=== PATIENT | female | born 1995 | race Caucasian/White ===

== ENCOUNTER 2019-03-25 12:38 | Outpatient (RCR) | payer OTHER, SELFPAY ==
[2019-03-25 14:11] LABS: Hematocrit 32.4 % (37.0-47.0); Hemoglobin 11.2 g/dL (12.0-15.0)
[2019-03-25 14:22] LABS: Glucose 1 Hour PP 50gm Dose 115 mg/dL
[2019-03-25 15:03] LABS: HIV 1/2 Ab P24 Ag Result Negative (Negative)
[2019-03-25] MEDS: RHO(D) IMMUNE GLOBULIN 300 MCG SYRINGE IM (19:51)
== END 2019-06-23 23:59 | disposition home or self-care (01) ==
LOC: ANHLAB 12:38
PROVIDERS: Visit Provider Obstetrics & Gynecology
DX: Z29.13 Encounter for prophylactic Rho(D) immune globulin (principal); O36.0920 Maternal care for other rhesus isoimmunization, second trimester, not applicable or unspecified; Z36.89 Encounter for other specified antenatal screening; Z3A.00 Weeks of gestation of pregnancy not specified
CPT/HCPCS: 36415; 82947; 85014; 85018; 86703; 90384; 96372; G0432; J2790

== ENCOUNTER 2019-04-15 09:55 | Outpatient (RCR) | payer OTHER, SELFPAY ==
[2019-04-15 11:21] VITALS: BP 117/71; PULSE 74
== END 2019-06-06 09:03 | disposition home or self-care (01) ==
LOC: ANHOBOP 09:55
PROVIDERS: Visit Provider Obstetrics & Gynecology
DX: O99.89 Other specified diseases and conditions complicating pregnancy, childbirth and the puerperium (principal); Z3A.32 32 weeks gestation of pregnancy; R51 Headache; M79.89 Other specified soft tissue disorders
CPT/HCPCS: 59025

== ENCOUNTER 2019-06-05 19:00 | Inpatient (IN) | payer OTHER, SELFPAY ==
[2019-06-05 19:00] VITALS: BMI 41.1
[2019-06-05 19:43] VITALS: TEMP 37.1
[2019-06-05 19:44] LABS: Basophils Percent Auto 0.3 % (0.2-1.2); Eosinophils Absolute Auto 0.1 K/mm3 (0-0.3); Eosinophils Percent Auto 0.7 % (0-4.4); Hematocrit 35.5 % (37.0-47.0); Immature Granulocyte Absolute 0.13 K/mm3 (0.00-0.031); Immature Granulocyte Percent A 1.1 % (0-0.5); Lymphocytes Absolute Auto 1.83 K/mm3 (0.9-3.2); Mean Corpuscular HGB Conc 33.8 g/dl (32-36); Mean Corpuscular Hemoglobin 28.8 pg (26-34); Mean Corpuscular Volume 85.1 fl (80-100); Mean Platelet Volume 10.5 fl (7.4-10.4); Monocytes Absolute Auto 0.9 K/mm3 (0.1-0.6); Monocytes Percent Auto 7.2 % (2.6-8.5); Neutrophils Absolute Auto 9.3 K/mm3 (1.3-6.7); Neutrophils Percent Auto 75.7 % (45.5-73.1); Platelet Count Result 265 k/mm3 (150-375); Red Blood Count 4.17 M/mm3 (4.2-5.4); Red Cell Distribution Width 12.4 % (11.5-14.5); White Blood Count 12.2 K/mm3 (4.5-10.0)
[2019-06-05] MEDS: DINOPROSTONE 10 MG VAG INSERT VAGINAL (19:55)
--- NOTE | 2019-06-05 20:24 | LDADM ---
This patient, Luz Marina Nicholas, was admitted to Labor/Delivery/Recovery 104 on 06/05/19 at 19:00. Plans for labor, pain management and were discussed with patient. Patient/family oriented to hospital policies and general routines including ID bracelet, bed and alarms, visiting hours, pain management, procedures, bathroom and other care routines, personal items, smoking policy, room service/diet and guest tray routines, security routines, and visiting hours. Patient/Family are encouraged to report perceived risks to care and to ask questions if they do not understand what they are told or what they should do. See OBIX for further documentation.
[2019-06-05 20:31] VITALS: BP 129/90; PULSE 79
[2019-06-05 21:01] VITALS: BP 134/84; PULSE 81
[2019-06-05 21:31] VITALS: BP 132/85; PULSE 81
[2019-06-05 22:01] VITALS: BP 104/75; PULSE 77
[2019-06-05] MEDS: LACTATED RINGERS 1,000 ML 125 ML IV CONT (23:45)
[2019-06-06] VITALS (135 sets, daily range): BP systolic 62–132; BP diastolic 31–99; PULSE 78–134; RESP 16–22; TEMP 36.7–38.1; O2SAT 96–100
--- NOTE | 2019-06-06 01:29 | WPDANESEPPF ---
Anes - Initial Pre Proc Eval Date/Time: 06/06/19 01:29 Surgeon: Ralf Pinedo MD Pre Op Diagnosis: Induction of labor Patient Data Age: 23 Gender: F Height: 5 ft 5 in Weight: 112 kg Last Vital Signs Temp 37.1 C 06/05/19 19:43 Pulse 90 06/06/19 01:28 BP 97/49 L 06/06/19 01:28 Pulse Ox 99 06/06/19 01:28 Allergies Allergy/AdvReac Type Severity Reaction Status Date / Time sulfamethoxazole Allergy Unknown Anaphylaxis Unverified 06/05/19 21:11 sumatriptan Allergy Unknown Chest Pain Unverified 06/05/19 21:11 trimethoprim Allergy Unknown Anaphylaxis Unverified 06/05/19 21:11 Home Medications Medication Instructions Recorded Confirmed Type PNV cmb#95-ferrous fumarate-FA 1 tablet PO DAILY 05/20/19 05/20/19 History [] Laboratory Tests 06/05/19 06/05/19 06/05/19 19:30 19:30 19:30 WBC 12.2 K/mm3 H K/mm3 (4.5-10.0) RBC 4.17 M/mm3 L M/mm3 (4.2-5.4) Hgb 12.0 g/dL g/dL (12.0-15.0) Hct 35.5 % L % (37.0-47.0) MCV 85.1 fl fl (80-100) MCH 28.8 pg pg (26-34) MCHC 33.8 g/dl g/dl (32-36) RDW 12.4 % % (11.5-14.5) Plt Count 265 k/mm3 k/mm3 (150-375) MPV 10.5 fl H fl (7.4-10.4) Immature Gran % (Auto) 1.1 % H % (0-0.5) Neut % (Auto) 75.7 % H % (45.5-73.1) Lymph % (Auto) 15.0 % L % (18.3-44.2) [place] % (Auto) 7.2 % % (2.6-8.5) Eos % (Auto) 0.7 % % (0-4.4) Baso % (Auto) 0.3 % % (0.2-1.2) Lymph # (Auto) 1.83 K/mm3 K/mm3 (0.9-3.2) [place] # (Auto) 0.9 K/mm3 H K/mm3 (0.1-0.6) Eos # (Auto) 0.1 K/mm3 K/mm3 (0-0.3) Baso # (Auto) 0.0 K/mm3 K/mm3 (0.0-0.1) Abs Immat Gran (auto) 0.13 K/mm3 H K/mm3 (0.00-0.031) Absolute Neuts (auto) 9.3 K/mm3 H K/mm3 (1.3-6.7) Absolute Nucleated RBC 0.0 K/mm3 K/mm3 (0.0-0.012) Nucleated RBC % 0.0 % % (0.0-0.2) RPR Pending Blood Type AB Negative Antibody Screen Positive Antibody Identification Inconclusive Antigen Identification Cancelled SHREYA, IgG Interpret Not Performed SHREYA, Poly Interpret Negative SHREYA, Complement Interp Not Performed Patient hx anesthesia problems: none Family hx anesthesia problems: none [facility] Family History Family History Mother Diabetes mellitus Hypertension Social History Social History Smoking status: Never smoker Substance use: never Gender identity (if verbalized by the patient): Female Spiritual care concerns: No Anes - Eval Final PreProcedure Day of Procedure 06/06/19 01:29 Patient weight: morbidly obese Neurological: alert and oriented ASA classification: III Emergent: no Anesthetic plan: proceed Anesthesia type and monitoring: regional epidural and standard monitoring Informed Consent: The patient's anesthetic plan and its attendant risks and benefits were discussed with the patient/family/POA. Questions were solicited and answers provided to the satisfaction of the patient/family/POA.
[2019-06-06] MEDS: TERBUTALINE SULFATE 1 MG/ML VIAL 0.25 MG SUB-Q ×2 (02:14→03:42)
[2019-06-06] MEDS: AMPICILLIN 2 GM/NS 100 ML 2 GM/100 ML BAG IVPB (02:20)
[2019-06-06] MEDS: PHENYLEPHRINE 1,000 MCG/10 ML SYRINGE 100 MCG IV PUSH (02:38)
[2019-06-06] MEDS: ePHEDrine sulfate INJ 50 MG/ML AMPUL IV PUSH ×2 (02:49→02:54)
--- NOTE | 2019-06-06 04:18 | PM.IMHP ---
H&P: HPI History of Present Illness Chief complaint: Induction of labor Narrative: Luz Marina Nicholas is a 23 year old female at 39weeks and 5days initially presented for elective induction of labor. Cervidil was placed on admission and she started to contract and made cervical change. Epidural was administered, initial hypotension was noted followed by a prolonged deceleration. Terbutaline was administered. SROM clear fluid. Noted to have fever. Presumptive chorioamnionitis, antibiotics started. Recurrent variable decels noted. IUPC placed and amnioinfusion started. However, recurrent variable decels persisted. Review of Systems Constitutional: Constitutional: Reports no additional constitutional complaints, Denies chills, Denies fatigue and Denies weakness Cardiovascular: Cardiovascular: Reports no additional cardiovascular complaints, Denies chest pain, Denies lightheadedness and Denies palpitations Respiratory: Respiratory: Reports no additional respiratory complaints and Denies dyspnea Gastrointestinal: Gastrointestinal: Reports no additional gastrointestinal complaints and Denies abdominal pain Musculoskeletal: Musculoskeletal: Reports no additional musculoskeletal complaints Psychiatric: Psychiatric: Reports no additional psychiatric complaints [facility] Family History Family History Mother Diabetes mellitus Hypertension Social History Social History Smoking status: Never smoker Substance use: never Gender identity (if verbalized by the patient): Female Spiritual care concerns: No Meds Home Medications and Allergies Home Medications Medication Instructions Recorded Confirmed Type PNV cmb#95-ferrous fumarate-FA 1 tablet PO DAILY 05/20/19 05/20/19 History [] Allergies Allergy/AdvReac Type Severity Reaction Status Date / Time sulfamethoxazole Allergy Unknown Anaphylaxis Unverified 06/05/19 21:11 sumatriptan Allergy Unknown Chest Pain Unverified 06/05/19 21:11 trimethoprim Allergy Unknown Anaphylaxis Unverified 06/05/19 21:11 Vital Signs Vital Signs - 24 hr 06/05/19 19:43 06/05/19 20:31 06/05/19 21:01 Temperature 37.1 C Pulse Rate 79 81 Blood Pressure 129/90 134/84 Pulse Oximetry 06/05/19 21:31 06/05/19 22:01 06/06/19 01:12 Temperature 37.8 C H Pulse Rate 81 77 Blood Pressure 132/85 104/75 Pulse Oximetry 06/06/19 01:13 06/06/19 01:15 06/06/19 01:18 Temperature Pulse Rate 102 H Blood Pressure 123/80 Pulse Oximetry 100 100 06/06/19 01:19 06/06/19 01:23 06/06/19 01:27 Temperature Pulse Rate 101 H 95 Blood Pressure 120/78 95/42 L Pulse Oximetry 99 06/06/19 01:28 06/06/19 01:31 06/06/19 01:33 Temperature Pulse Rate 90 95 93 Blood Pressure 97/49 L 97/53 L 87/52 L Pulse Oximetry 99 100 06/06/19 01:35 06/06/19 01:36 06/06/19 01:38 Temperature 38.1 C H Pulse Rate 93 91 Blood Pressure 95/49 L 99/48 L Pulse Oximetry 100 06/06/19 01:41 06/06/19 01:43 06/06/19 01:46 Temperature Pulse Rate 96 88 83 Blood Pressure 97/50 L 100/46 L 106/46 L Pulse Oximetry 100 06/06/19 01:48 06/06/19 01:51 06/06/19 01:53 Temperature Pulse Rate 89 91 91 Blood Pressure 114/61 105/52 L 99/43 L Pulse Oximetry 100 100 06/06/19 01:56 06/06/19 01:58 06/06/19 01:59 Temperature Pulse Rate 89 96 96 Blood Pressure 62/40 L 102/52 L 110/70 Pulse Oximetry 99 06/06/19 02:01 06/06/19 02:03 06/06/19 02:06 Temperature Pulse Rate 90 88 96 Blood Pressure 118/63 119/65 113/55 L Pulse Oximetry 100 06/06/19 02:08 06/06/19 02:09 06/06/19 02:12 Temperature 38.1 C H Pulse Rate 89 Blood Pressure 121/67 Pulse Oximetry 100 06/06/19 02:13 06/06/19 02:16 06/06/19 02:18 Temperature Pulse Rate 90 Blood Pressure 104/57 L Pulse Oximetry 100 100 06/06/19 02:23 06/06/19 02:28 0
[2019-06-06] MEDS: ceFAZolin 2 GM/D5W 50 ML 2 GM/50 ML BAG IVPB (04:45)
--- NOTE | 2019-06-06 05:52 | WPDANESEFPP ---
Anes - Eval Final PreProcedure Day of Procedure 06/06/19 05:52 Patient weight: morbidly obese Heart: tachycardia Lungs: clear to auscultation Airway: Mallampati scale class II Neurological: alert and oriented ASA classification: III Emergent: yes Anesthetic plan: proceed Anesthesia type and monitoring: regional epidural and standard monitoring Other findings: use existing epid for c/s Informed Consent: The patient's anesthetic plan and its attendant risks and benefits were discussed with the patient/family/POA. Questions were solicited and answers provided to the satisfaction of the patient/family/POA.
[2019-06-06] MEDS: MORPHINE SULFATE 2 MG/ML INJ 3 MG IV PUSH (07:14)
--- NOTE | 2019-06-06 07:20 | OP_ITS ---
DATE OF PROCEDURE: 06/06/2019 PROCEDURE: Primary low-transverse section. PREOPERATIVE DIAGNOSES: 1. Term gestation. 2. Nonreassuring heart tones. 3. Chorioamnionitis. POSTOPERATIVE DIAGNOSES: 1. Term gestation. 2. Nonreassuring heart tones. 3. Chorioamnionitis. 4. Primary low-transverse section. ANESTHESIA: Epidural. ESTIMATED BLOOD LOSS: 1425 mL. FINDINGS: Single live female , born on June 06, 2017 at 04:56 a.m. Weight 8 pounds 3 ounces. Apgars 5/6/ 7. COMPLICATIONS: None apparent. BRIEF HISTORY: A 23-year-old G2, P0, at 39 weeks term gestation was originally admitted for elective induction of labor with cervical ripening with Cervidil. The patient progressed into labor, however, during labor, the patient was noted to have fever, suspected chorioamnionitis and antibiotics were started, recurrent variable and late decelerations were noted. Despite maternal resuscitation, the decelerations persisted. Risks, benefits, and alternatives were discussed with the patient considering that she was about 3 cm at that time. Discussed section for non-reassuring heart tones remote from delivery. DESCRIPTION OF PROCEDURE: The patient was moved to the OR where she was moved to the OR table. Epidural was noted to be working properly. Preoperative antibiotics were administered and a time-out was performed to identify the correct patient and the procedure. A Pfannenstiel skin incision was made and subsequent dissection of the subcutaneous tissue was made with scalpel down to the level of the fascia. The fascia was nicked at the midline. Fascial incision was extended laterally with Nava scissors. Isaac's was used to grasp the superior aspect of the fascia, tented up, and the rectus muscle was carefully dissected off. Attention turned to the inferior aspect of the fascia, which was grasped using Isaac's and then tented up. Rectus muscles carefully dissected off. The rectus muscles were divided in the midline and the peritoneum was entered. The Marques self-retaining retractor was inserted. A low-transverse uterine incision was made and was reached into the uterus. The was needed to be in OP position. 's head was elevated to the hysterotomy with gentle fundal pressure and the was delivered without any complications. No nuchal cord noted. The cord was clamped and cut and the was passed off to the awaiting nursing staff. Cord blood for gases collected. Placenta was expressed. Uterus was cleared of any remaining products and blood clots. Hysterotomy was reapproximated using 0 Vicryl in a single layer locking fashion. Several [id number] stitches were used to obtain hemostasis. After good hemostasis was confirmed, the Marques self-retaining retractor was removed. The fascia was reapproximated using 0 Vicryl in a continuous nonlocking fashion. The subcutaneous tissue was reapproximated with 2-0 plain and skin was reapproximated with 4-0 Monocryl in a subcuticular fashion. Sterile dressing was applied. The patient tolerated the procedure well. All sponge and instrument counts were correct at the end the procedure, and she was transferred to the recovery room in stable condition. Josh I MT: Jl ALVARADO
[2019-06-06 08:51] LABS: Rapid Plasma Reagin Non-Reactive (NonReactive)
--- NOTE | 2019-06-06 09:51 | OBPPTRN ---
Patient transferred to post room #288 via stretcher. Support person present. Oriented to unit, room, information board, rooming in, admission packet and security measures. Patient verbalizes understanding.
--- NOTE | 2019-06-06 10:00 | PC.NURSE ---
Consult with pt., discussed initiating pumping with in Level II. Mother states she is resting and will call out when ready.
[2019-06-06] MEDS: LACTATED RINGERS 1,000 ML 125 ML IV CONT (12:42)
--- NOTE | 2019-06-06 14:10 | PC.NURSE ---
Breast pump provided due to in Level II. Instructions given on breast pump care and usage, pumping schedule, nipple care, and collection and storage of breast milk. Encouraged [id number], breast massage and manual expression to stimulate supply. Assessed patient for correct flange size, placement and draw. Patient verbalizes and demonstrates understanding of instructions.
--- NOTE | 2019-06-06 15:40 | PC.NURSE ---
Consulted with patient, reviewed feeding cues, frequencies, duration of feedings, feeding elimination flow sheet, and signs of adequate intake. Demonstrated stimulation techniques to wake for feeding. Assisted with to breast. Reviewed positioning/alignment in football, holding breast in C hold and guided asymmetrical latch on. Discussed rational for each. Infant was able to latch correctly with first attempt. Infant nursed eagerly, with steady draws and frequent swallowing noted. Reviewed signs of a correct latch, effective nursing and suck swallow ratio. Infant was able to maintain latch without discomfort to mother. Nipple care reviewed. Instructed mother to call out for RN assistance if she is unable to latch for feeding or she has discomfort with nursing. Instructed feeding should be initiated three hours from start of last feeding or if feeding cues are noted before. Mother voiced understanding of information shared.
[2019-06-06] MEDS: IBUPROFEN 600 MG TABLET PO (21:25)
[2019-06-07] MEDS: IBUPROFEN 600 MG TABLET PO ×3 (04:44→21:57)
[2019-06-07 05:00] VITALS: BP 127/81; PULSE 86; RESP 16; TEMP 36.7; O2SAT 98
[2019-06-07 05:33] LABS: Basophils Percent Auto 0.3 % (0.2-1.2); Eosinophils Percent Auto 0.3 % (0-4.4); Hematocrit 25.6 % (37.0-47.0); Hemoglobin 8.3 g/dL (12.0-15.0); Immature Granulocyte Absolute 0.08 K/mm3 (0.00-0.031); Immature Granulocyte Percent A 0.7 % (0-0.5); Lymphocytes Absolute Auto 1.44 K/mm3 (0.9-3.2); Lymphocytes Percent Auto 12.2 % (18.3-44.2); Mean Corpuscular HGB Conc 32.4 g/dl (32-36); Mean Corpuscular Hemoglobin 28.6 pg (26-34); Mean Corpuscular Volume 88.3 fl (80-100); Mean Platelet Volume 10.6 fl (7.4-10.4); Monocytes Percent Auto 8.5 % (2.6-8.5); Neutrophils Absolute Auto 9.2 K/mm3 (1.3-6.7); Platelet Count Result 198 k/mm3 (150-375); Red Cell Distribution Width 12.7 % (11.5-14.5); White Blood Count 11.8 K/mm3 (4.5-10.0)
--- NOTE | 2019-06-07 07:47 | PM.OBPNVD ---
OB - PN: Subj Subjective Date/time seen: 06/07/19 07:47 Pain well controlled. Out of bed once yesterday. No sig concerns. OB - PN: Obj Data Labs CBC & Chem 7: 06/07/19 04:48 Labs: Laboratory Results - last 24 hr 06/05/19 06/07/19 06/07/19 19:30 04:48 04:48 WBC 11.8 H RBC 2.90 L Hgb 8.3 L D Hct 25.6 L MCV 88.3 MCH 28.6 MCHC 32.4 RDW 12.7 Plt Count 198 MPV 10.6 H Immature Gran % (Auto) 0.7 H Neut % (Auto) 78.0 H Lymph % (Auto) 12.2 L [place] % (Auto) 8.5 Eos % (Auto) 0.3 Baso % (Auto) 0.3 Lymph # (Auto) 1.44 [place] # (Auto) 1.0 H Eos # (Auto) 0.0 Baso # (Auto) 0.0 Abs Immat Gran (auto) 0.08 H Absolute Neuts (auto) 9.2 H Absolute Nucleated RBC 0.0 Nucleated RBC % 0.0 RPR Non-reactive Blood Type AB Negative OB - PN A/P Plan day: 1 Plan: routine care Comments: Possible home tomorrow. Time Spent With Patient Time: Total time spent is greater than 50% in coordination of care (as documented) at patient's floor/unit and/or counseling patient: Exam GI: Inspection: other (incision covered/dressing dry) Auscultation: normal bowel sounds
[2019-06-07 08:35] VITALS: BP 121/72; PULSE 89; RESP 16; TEMP 37.2; O2SAT 99
[2019-06-07] MEDS: MULTIVIT/MIN/PREN/FOL AC/IRON TABLET 1 TAB PO (08:55)
[2019-06-07] MEDS: DOCUSATE SODIUM 100 MG CAPSULE PO ×2 (08:55→16:22)
[2019-06-07] MEDS: POLYSACCHARIDE IRON COMPLEX 150 MG CAPSULE PO ×2 (08:55→16:22)
--- NOTE | 2019-06-07 11:45 | PC.NURSE ---
Mother is able to independently latch infant with appropriate positioning/alignment. She reports slight nipple tenderness, is feeding as required and waking to feed if needed. Infant is currently meeting outcomes for weight, output, jaundice and feeding frequencies. Suggested mother work with holding breast during entire feeding to assist with deep latch. Demonstrated how to adjust latch more deeply while feeding.
[2019-06-07] MEDS: RHO(D) IMMUNE GLOBULIN 300 MCG SYRINGE IM (11:59)
--- NOTE | 2019-06-07 14:51 | WPDANLDPN2 ---
Anes-Prog Note L&D Date/Time: 06/07/19 14:51 Comfortable throughout: section Neuraxial method: spinal Epidural/Spinal procedure site: clean & non-tender Neuro status: Neuro function grossly intact. Cardiovascular status: normal Respiratory status: normal Airway patency: baseline Mental status: baseline Post-Op hydration status: normal Vital Signs: Last Vital Signs Temp 37.2 C 06/07/19 08:35 Pulse 89 06/07/19 08:35 Resp 16 06/07/19 08:35 BP 121/72 06/07/19 08:35 Pulse Ox 99 06/07/19 08:35 I/O: Intake & Output 06/06/19 06/07/19 06/07/19 23:59 07:59 15:59 Intake Total 420 Output Total 1327 700 300 Balance -909 -700 -391 Post-procedural complaints: none Patient feedback: Patient satisfied with anesthetic care.
--- NOTE | 2019-06-07 14:52 | WPDANLDNPN2 ---
Anes-Prog Note L&D-Neuraxial Date/Time: 06/07/19 14:52 Neuraxial medications: intrathecal PF morphine Opiod-related complaints: none Patient feedback: Patient satisfied with post-operative pain management.
[2019-06-07 20:10] VITALS: BP 111/68; PULSE 106; RESP 18; TEMP 37.1; O2SAT 100
--- NOTE | 2019-06-07 20:10 | PC.NURSE ---
Patient viewed the discharge video Mother & Baby Care, The First Two Weeks . Patient was given the opportunity and encouraged to ask questions. Patient verbalized understanding of information shared and has been given the mother/baby guide for home reference.
[2019-06-08] MEDS: IBUPROFEN 600 MG TABLET PO (05:33)
--- NOTE | 2019-06-08 06:55 | PM.OBDSVD ---
DS: Diagnosis Admitting Diagnosis Admitting Diagnosis: Encounter for supervision of normal , unspecified, unspecified trimester OB - DS: Summary OB Procedures : None OB Procedures Intrapartum: OB Procedures: : None Peripartum Data Procedures: Procedures Operation Date: 06/06/19 04:50 Actual Procedures Side Surgeon p Section Not Applicable Kriss Morrow DO Time Spent with Patient Time attestation: Total time spent providing and/or coordinating discharge services: DS: Data Data Completed and Pending Completed studies during hospitalization: Pending at discharge 06/06/19 05:57 Consult to Pathologist [PTH] Routine Labs on day of discharge: Labs from last 24 hours 06/07/19 04:48 Blood Type AB Negative Antibody Screen Negative Screen Negative Baby's Blood Type B pos Baby's SHREYA Negative Doses of RhIg Required 1 Discharge Plan Discharge Discharging Clinician: Ralf Pinedo Patient Disposition: Home, Self-Care Activity: as tolerated Diet: as tolerated Wound Care Instructions: incision open to air Patient Instructions: Antibiotic Form Stand Alone Forms: General Discharge Information Follow-up/Referrals: Ralf Pinedo MD [Physician] - 3 Weeks Discharge Medications: New hydrocodone-acetaminophen 5-325 mg Tablet 1 tab PO Q3H PRN (Reason: Moderate Pain (4-6)) Qty: 24 RF: 0 ibuprofen 600 mg Tablet 600 mg PO Q6H PRN (Reason: Cramping) Qty: 30 RF: 0 Continued PNV cmb#95-ferrous fumarate-FA [] 28 mg iron- 800 mcg Tablet 1 tablet PO DAILY RF: 0 Date of admission: 06/05/19 19:00 Primary Care Provider: UNKNOWN,DOCTOR Admitting Provider: Ralf Pinedo Attending physician on admission: Ralf Pinedo
[2019-06-08] MEDS: POLYSACCHARIDE IRON COMPLEX 150 MG CAPSULE PO (08:31)
[2019-06-08] MEDS: DOCUSATE SODIUM 100 MG CAPSULE PO (08:31)
[2019-06-08] MEDS: MULTIVIT/MIN/PREN/FOL AC/IRON TABLET 1 TAB PO (08:31)
[2019-06-08 09:13] VITALS: BP 108/71; PULSE 86; RESP 18; TEMP 36.8; O2SAT 98
[2019-06-10 08:55] VITALS: BP 128/70; PULSE 88; RESP 20; TEMP 36.6; O2SAT 99
== END 2019-06-08 13:05 | disposition home or self-care (01) | DRG 540 ==
LOC: ANHLDR 19:07 → ANHOB2 06-06 08:51
PROVIDERS: Admitting Provider Obstetrics & Gynecology; Visit Provider Obstetrics & Gynecology
PROC: 10D00Z1 Extraction of Products of Conception, Low, Open Approach (ICD-10-PCS; CPT 59514; principal; 2019-06-06 04:50)
DX: O75.2 Pyrexia during labor, not elsewhere classified (principal); Z37.0 Single live birth; Z3A.39 39 weeks gestation of pregnancy; Z23 Encounter for immunization; O76 Abnormality in fetal heart rate and rhythm complicating labor and delivery
CPT/HCPCS: 36415; 85025; 86592; 86850; 86880; 86900; 86901; 88307; 90384; A9270; J0131; J0290; J0690; J1200; J2270; J2274; J2370; J2405; J2790; J2795; J3010; J3105; J7030; J7120

== ENCOUNTER 2019-11-07 09:33 | Outpatient (CLI) | payer OTHER, SELFPAY ==
[2019-11-07 10:19] LABS: Beta HCG Quantitative < 2.39 mIU/ML
== END 2019-11-07 09:34 | disposition home or self-care (01) ==
PROVIDERS: PCP Obstetrics & Gynecology; Visit Provider Obstetrics & Gynecology
DX: Z30.09 Encounter for other general counseling and advice on contraception (principal)
CPT/HCPCS: 36415; 84702

== ENCOUNTER 2020-04-03 09:05 | Emergency (ER) | payer OTHER, SELFPAY ==
--- NOTE | 2020-04-03 09:24 | ED.NECK ---
HPI - Neck Pain/Injury General Chief Complaint: Neck Pain/Injury Stated Complaint: Neck Pain Time Seen by Provider: 04/03/20 09:25 Source: patient and RN notes reviewed Mode of arrival: ambulatory Limitations: no limitations History of Present Illness HPI Narrative: 24 yo female presents to the [facility] for neck pain for 2 days. Right lateral pain worse with movement and palpation. NO midline tenderness. Has Full ROM of the shoulders bilateral. No meningeal signs. No loss or retention of bowel or bladder. Walks with a normal gait. Denies any numbness or tingling in extremities. No chest pain or shortness of breath. No abdominal pain. No urinary symptoms. Patient reports sleeping on a couch at night before symptoms started Related Data Home Medications Medication Instructions Recorded Confirmed levonorgestrel [Mirena] See Rx Instructions .ROUTE .COMPLEX 04/03/20 04/03/20 Allergies Allergy/AdvReac Type Severity Reaction Status Date / Time sulfamethoxazole Allergy Severe Anaphylaxis Verified 04/03/20 09:22 trimethoprim Allergy Severe Anaphylaxis Verified 04/03/20 09:22 sumatriptan Allergy Unknown Chest Pain Verified 04/03/20 09:22 Review of Systems Review of Systems: Narrative: CONSTITUTIONAL: Denies fever, chills, or sweats. EYES: Denies visual changes, redness, or discharge. ENT: Denies rhinorrhea, congestion, sore throat, or otalgia. CARDIOVASCULAR: Denies chest pain, palpitations, or edema. RESPIRATORY: Denies cough or dyspnea. GASTROINTESTINAL: Denies abdominal pain, nausea, vomiting, or diarrhea. GENITOURINARY: Denies dysuria or hematuria. SKIN: Denies rash or itching. MUSCULOSKELETAL: Denies back pain, joint pain. right lateral neck radiating to right shoulder. NEUROLOGIC: Denies headache, numbness, or weakness. PSYCHIATRIC: Denies anxiety or depression. All other systems reviewed are negative, except as documented in HPI. [facility] Family History Family History Mother Diabetes mellitus Hypertension Social History Social History Smoking status: Never smoker Substance use: never Gender identity (if verbalized by the patient): Female Spiritual care concerns: No Comments At the time of my signature, I reviewed and agree with the nursing past medical, surgical, social, and family history. There is no relevant family history pertinent to the patient complaint. Exam Narrative: Exam Narrative: GENERAL: This is a well-nourished, well-developed patient, in no apparent distress. HEAD: normocephalic, atraumatic. EYES: PERRL. Sclera clear/white. Vision is grossly intact. EARS: External ears normal, auditory canals clear and without drainage, TMs normal without perforation. Hearing grossly intact. NOSE: External nose normal with no obvious nasal discharge, nares without redness, no rhinorrhea. THROAT: Mucous membranes moist, posterior pharynx clear. NECK: Neck supple, no lymphadenopathy. Tenderness right lateral neck. Able to reproduce with palpation and with movement. No masses or thyromegaly. CARDIOVASCULAR: Regular rate and rhythm without murmurs, gallops, or rubs. RESPIRATORY: Clear to auscultation. Breath sounds equal bilaterally. No wheezes, rales, or rhonchi. GASTROINTESTINAL: Abdomen soft, non-tender, nondistended. Bowel sounds are active. No hepato-splenomegaly, or palpable masses. No guarding. SKIN: warm, intact with no suspicious lesions or rash, good texture and turgor. NEURO: awake, alert, and oriented to person, place and time. There were no obvious focal neurologic abnormalities. EXTREMITIES: No clubbing, cyanosis, or edema. No joint tenderness, effusion, or edema noted. BACK: Nontender without deformity or crepitance. No flank tenderness. Neck: Neck images: 1. Tenderness with palpation radiating into right shoulder. Spasm noted on palpation. No midline tenderness. Cours
[2020-04-03 09:29] VITALS: BP 129/83; PULSE 69; RESP 18; TEMP 36.6; O2SAT 100
== END 2020-04-03 09:39 | disposition home or self-care (01) ==
PROVIDERS: Emergency Provider Nurse Practitioner
DX: S16.1XXA Strain of muscle, fascia and tendon at neck level, initial encounter (principal); X58.XXXA Exposure to other specified factors, initial encounter
CPT/HCPCS: 99213; G0463

== ENCOUNTER 2020-12-29 12:50 | Emergency (ER) | payer OTHER, SELFPAY ==
[2020-12-29 12:55] VITALS: BP 143/82; PULSE 79; RESP 16; TEMP 36.7; O2SAT 100
[2020-12-29 13:00] VITALS: BP 143/82; PULSE 79; RESP 16; TEMP 36.7; O2SAT 100
--- NOTE | 2020-12-29 13:02 | ED.URI ---
HPI - URI/Sore Throat General Chief Complaint: Upper Respiratory Infection Stated Complaint: sinus issues/cough/runny nose Source: patient and RN notes reviewed Mode of arrival: ambulatory History of Present Illness HPI Narrative: This is a 25-year-old female who presented to urgent care with complaints of sinus pain, fever, cough and congestion patient has a history of sinus infection she has had 2 within this year. She also complains of coughing nonproductive. Patient has taken Mucinex and DayQuil along with NyQuil at home for her symptoms with no relief. She does not have a primary care physician. The patient denies SOB, CP, palpitation, extremity numbness, lightheadedness, dizziness, constipation, diarrhea, chills, or fever. Related Data Home Medications Medication Instructions Recorded Confirmed levonorgestrel [Mirena] See Rx Instructions .ROUTE .COMPLEX 04/03/20 04/03/20 Allergies Allergy/AdvReac Type Severity Reaction Status Date / Time sulfamethoxazole Allergy Severe Anaphylaxis Verified 04/03/20 09:22 trimethoprim Allergy Severe Anaphylaxis Verified 04/03/20 09:22 sumatriptan Allergy Unknown Chest Pain Verified 04/03/20 09:22 Review of Systems Review of Systems: A 14 organ system Review of Systems was performed and pertinent positives included in the HPI, otherwise remaining ROS is negative. [facility] Family History Family History Mother Diabetes mellitus Hypertension Social History Social History Smoking status: Never smoker Substance use: never Gender identity (if verbalized by the patient): Female Spiritual care concerns: No Exam Narrative: GENERAL: This is a well-nourished, well-developed patient, in no apparent distress. HEAD: normocephalic, atraumatic. Maxillary in frontal tenderness EYES: PERRL. Sclera clear/white. Vision is grossly intact. EARS: External ears normal, auditory canals clear and without drainage, TMs normal without perforation. Hearing grossly intact. NOSE: External nose normal with no obvious nasal discharge, nares without redness, no rhinorrhea. THROAT: Mucous membranes moist, posterior pharynx clear. NECK: Neck supple, non-tender without lymphadenopathy, masses or thyromegaly. CARDIOVASCULAR: Regular rate and rhythm without murmurs, gallops, or rubs. RESPIRATORY: Clear to auscultation. Breath sounds equal bilaterally. No wheezes, rales, or rhonchi. GASTROINTESTINAL: Abdomen soft, non-tender, nondistended. Bowel sounds are active. No hepato-splenomegaly, or palpable masses. No guarding. SKIN: warm, intact with no suspicious lesions or rash, good texture and turgor. NEURO: awake, alert, and oriented to person, place and time. There were no obvious focal neurologic abnormalities. Steady gait EXTREMITIES: Normal range of motion. No edema. No calf tenderness. Negative Homans sign bilaterally. BACK: Nontender without deformity or crepitance. No flank tenderness. Course Course Emergency Course: Patient will discharge home with Augmentin x7 days and guaifenesin Vital Signs Vital signs: Vital Signs Temperature 98.0 F 12/29/20 12:55 Pulse Rate 79 12/29/20 12:55 Respiratory Rate 16 12/29/20 12:55 Blood Pressure 143/82 H 12/29/20 12:55 Pulse Oximetry 100 12/29/20 12:55 Temperature 98.0 F 12/29/20 13:00 Pulse Rate 79 12/29/20 13:00 Respiratory Rate 16 12/29/20 13:00 Blood Pressure 143/82 H 12/29/20 13:00 Pulse Oximetry 100 12/29/20 13:00 MDM - URI/Sore Throat Differential Diagnosis Differential diagnosis: Likely upper respiratory infection, sinusitis, bronchitis, influenza and pharyngitis Discharge Plan Discharge Clinical Impression: Sinusitis Qualifiers: Sinusitis location: frontal Chronicity: acute Recurrence: recurrent Qualified Code(s): J01.11 - Acute recurrent frontal sinusitis Patient Disposition: Home, Self-Care
== END 2020-12-29 13:13 | disposition home or self-care (01) ==
PROVIDERS: Emergency Provider Nurse Practitioner
DX: J01.11 Acute recurrent frontal sinusitis (principal)
CPT/HCPCS: 99213; G0463

== ENCOUNTER 2022-02-14 17:41 | Emergency (ER) | payer OTHER, SELFPAY ==
[2022-02-14 17:46] VITALS: BP 135/81; PULSE 78; RESP 16; TEMP 37.1; O2SAT 100
--- NOTE | 2022-02-14 17:53 | ED.EAR ---
HPI - Ear Problem General Chief complaint: Ear Stated complaint: Right Ear Irritation Time Seen by Provider: 02/14/22 17:53 Source: patient, RN notes reviewed and old records reviewed Mode of arrival: ambulatory Limitations: no limitations History of Present Illness HPI Narrative: 26-year-old female presents to the [facility] with right ear pain. Patient reports that her daughter had RSV then she developed similar symptoms so she stayed home and quarantine. Treated her symptoms. Started with ear pressure and over the last several days has become worse. Decreased hearing out of the right ear. Treatment prior to arrival: other ([id number] cold medicine) Related Data Home Medications Medication Instructions Recorded Confirmed levonorgestrel 20 mcg/24 hours (8 20 mcg DIRECTED 04/03/20 02/14/22 yrs) 52 mg intrauterine device (Mirena) fluoxetine 40 mg capsule 40 mg PO DAILY 11/09/21 02/14/22 lamotrigine 25 mg tablet 25 mg BID 02/14/22 02/14/22 Allergies Allergy/AdvReac Type Severity Reaction Status Date / Time sulfamethoxazole Allergy Severe Anaphylaxis Verified 02/14/22 17:54 trimethoprim Allergy Severe Anaphylaxis Verified 02/14/22 17:54 sumatriptan Allergy Unknown Chest Pain Verified 02/14/22 17:54 Review of Systems Review of Systems: All systems reviewed & are unremarkable except as noted in HPI and below Constitutional: Constitutional: Reports no additional constitutional complaints Eyes: Eyes: Reports no additional eye complaints ENT: Reports as per HPI (Right ear pain) Cardiovascular: Cardiovascular: Reports no additional cardiovascular complaints, Denies chest pain and Denies dyspnea Respiratory: Respiratory: Reports no additional respiratory complaints, Denies chest congestion, Denies cough and Denies dyspnea Gastrointestinal: Gastrointestinal: Reports no additional gastrointestinal complaints, Denies abdominal pain, Denies nausea and Denies vomiting Musculoskeletal: Musculoskeletal: Reports no additional musculoskeletal complaints Integumentary/Breasts: Skin/Breast: Reports system reviewed and no additional complaints, except as docu Neurologic: Reports system reviewed and no additional complaints, except as documented Psychiatric: Psychiatric: Reports no additional psychiatric complaints Allergic/Immunologic: Allergic/Immunologic: Reports no additional allergic/immunologic complaints PMFSH Past Medical History Medical History Anxiety Asthma Encounter for IUD insertion 11/07/19 Mirena insertion GERD (gastroesophageal reflux disease) Surgical History Surgical History History of 06/06/19 primary c/s History of esophagogastroduodenoscopy (EGD) (~2013) GERD History of tonsillectomy (~04/2008) Family History Family History Mother Diabetes mellitus Hypertension Hypothyroidism Grandparent Diabetes mellitus maternal grandfather Social History Social History Smoking status: Never smoker Alcohol intake: never Substance use: never Substance use type: does not use Additional living arrangements comments: Additional occupation/education comments: [employer] Gender identity (if verbalized by the patient): Female Sexual Orientation (if Verbalized by the Patient): Straight or Heterosexual Spiritual care concerns: No Comments At the time of my signature, I reviewed and agree with the nursing past medical, surgical, social, and family history. There is no relevant family history pertinent to the patient complaint. Exam Const: General: cooperative, healthy appearing, comfortable, no acute distress, well developed, alert and well nourished Nutritional Appearance: well nourished Orientation/consciousness:
== END 2022-02-14 18:03 | disposition home or self-care (01) ==
PROVIDERS: Emergency Provider Nurse Practitioner
DX: H66.91 Otitis media, unspecified, right ear (principal)
CPT/HCPCS: 99213; G0463

== ENCOUNTER 2022-03-30 10:52 | Emergency (ER) | payer OTHER, SELFPAY ==
--- NOTE | 2022-03-30 10:55 | ED.FEMALEGU ---
HPI - Female Genitourinary General Chief complaint: Urogenital-Female Stated complaint: uti Time Seen by Provider: 03/30/22 10:59 Source: patient Mode of arrival: ambulatory Limitations: no limitations History of Present Illness HPI Narrative: Luz Marina is a 26-year-old female patient presenting to the clinic today with complaints possible urinary tract infection. She reports symptoms have been going on x3 days. She denies any fever or chills but does has some low back pain and lower abdominal pain. History of frequent urinary tract infections. She has taken some azo for her symptoms Related Data Home Medications Medication Instructions Recorded Confirmed levonorgestrel 20 mcg/24 hours (8 20 mcg DIRECTED 04/03/20 03/30/22 yrs) 52 mg intrauterine device (Mirena) Allergies Allergy/AdvReac Type Severity Reaction Status Date / Time sulfamethoxazole Allergy Severe Anaphylaxis Verified 03/30/22 10:57 trimethoprim Allergy Severe Anaphylaxis Verified 03/30/22 10:57 sumatriptan Allergy Unknown Chest Pain Verified 03/30/22 10:57 Review of Systems Review of Systems: Pertinent positives per HPI. Patient denies any fever, chills, rash, headache, visual changes, dizziness, cough, runny nose, sore throat, shortness of breath, chest pain, palpitations, nausea, vomiting, diarrhea, constipation, abdominal pain, or any urinary issues. [facility] Past Medical History Medical History Anxiety Asthma Encounter for IUD insertion 11/07/19 Mirena insertion GERD (gastroesophageal reflux disease) Surgical History Surgical History History of 06/06/19 primary c/s History of esophagogastroduodenoscopy (EGD) (~2013) GERD History of tonsillectomy (~04/2008) Family History Family History Mother Diabetes mellitus Hypertension Hypothyroidism Grandparent Diabetes mellitus maternal grandfather Social History Social History Smoking status: Never smoker Alcohol intake: never Substance use: never Substance use type: does not use Living arrangements: other Additional living arrangements comments: Occupation/Education: occupation Additional occupation/education comments: [employer] Gender identity (if verbalized by the patient): Female Sexual Orientation (if Verbalized by the Patient): Straight or Heterosexual Spiritual care concerns: No Comments At the time of my signature, I reviewed and agree with the nursing past medical, surgical, social, and family history. There is no relevant family history pertinent to the patient complaint. Exam Narrative: General: Well-developed, obese, in no apparent distress. Head: Normocephalic, atraumatic. Cardio: Regular rate and rhythm, s1 and s2 normal, no murmur appreciated. Resp: Clear to auscultation bilaterally, no rhonchi, rales, wheezing or rubs. Abdomen: Soft, pliable, bowel sounds present in all quadrants, tender to palpation over the suprapubic area, no organomegly, right CVAT tenderness. Course Course Emergency Course: Portions of this record may have been created with voice recognition software. Level of Care: Express Care Visit Vital Signs Vital signs: Vital Signs Temperature 37.2 C 03/30/22 10:58 Pulse Rate 83 03/30/22 10:58 Respiratory Rate 18 03/30/22 10:58 Blood Pressure 135/87 03/30/22 10:58 Pulse Oximetry 99 03/30/22 10:58 Oxygen Delivery Room Air 03/30/22 10:58 Temperature 37.2 C 03/30/22 10:58 Pulse Rate 83 03/30/22 10:58 Respiratory Rate 18 03/30/22 10:58 Blood Pressure 135/87 03/30/22 10:58 Pulse Oximetry 99 03/30/22 10:58 Oxygen Delivery Room Air 03/30/22 10:58 Vital signs reviewed MDM - Female Genitourin
[2022-03-30 10:58] VITALS: BP 135/87; PULSE 83; RESP 18; TEMP 37.2; O2SAT 99
[2022-03-30 13:55] LABS: Glucose Point of Care 88 mg/dl (65-105)
== END 2022-03-30 11:23 | disposition home or self-care (01) ==
PROVIDERS: Emergency Provider Nurse Practitioner Family
DX: N30.01 Acute cystitis with hematuria (principal); J45.909 Unspecified asthma, uncomplicated; K21.9 Gastro-esophageal reflux disease without esophagitis
CPT/HCPCS: 81003; 82948; 87077; 87086; 87186; 99213; G0463

== ENCOUNTER 2022-05-21 22:36 | Emergency (ER) | payer OTHER, SELFPAY ==
--- NOTE | ~2022-05-21 | CT_ITS ---
EXAMINATION: CT abdomen pelvis wo con DATE: 05/22/2022 01:46 INDICATION: Right flank pain radiating into right lower quadrant TECHNIQUE: Computed tomography (CT) of the abdomen and pelvis was performed without intravenous contr ast. The dose-length product was 1633.76 mGy-cm. Automated exposure control and iterative reconstruct ion technique were employed. COMPARISON: No prior studies for comparison. FINDINGS: Lung bases are unremarkable. Heart size normal. No significant pleural or pericardial effus ion. No significant vascular abnormality. No lymphadenopathy. There is an IUD in the uterus. Normal a ppendix. Nonobstructive bowel pattern. Gallstone. The liver, spleen, pancreas, adrenal glands and lef t kidney are unremarkable. There is a 5 mm distal right ureteral stone located in the pelvis with mod erate hydroureteronephrosis. There is right perinephric edema. No free air or free fluid. No acute bone or joint abnormality. IMPRESSION: 1. Obstructing distal right ureteral stone in the pelvis measuring 5 mm. Moderate resultant right hyd roureteronephrosis and perinephric edema. Reviewed, dictated and finalized at location A. IMPRESSION: 1. Obstructing distal right ureteral stone in the pelvis measuring 5 mm. Modera te resultant right hydroureteronephrosis and perinephric edema.
[2022-05-21 22:41] VITALS: BP 146/93; PULSE 85; RESP 18; TEMP 36.6; O2SAT 100
[2022-05-21 23:01] LABS: Basophils Percent Auto 0.2 % (0.2-1.2); Eosinophils Percent Auto 0.1 % (0-4.4); Hematocrit 40.3 % (37.0-47.0); Hemoglobin 13.3 g/dL (12.0-15.0); Immature Granulocyte Absolute 0.07 K/mm3 (0.00-0.031); Immature Granulocyte Percent A 0.5 % (0-0.5); Lymphocytes Absolute Auto 1.53 K/mm3 (0.9-3.2); Mean Corpuscular Hemoglobin 27.4 pg (26-34); Mean Corpuscular Volume 82.9 fl (80-100); Mean Platelet Volume 10.8 fl (7.4-10.4); Monocytes Absolute Auto 0.7 K/mm3 (0.1-0.6); Monocytes Percent Auto 5.4 % (2.6-8.5); Neutrophils Absolute Auto 10.5 K/mm3 (1.3-6.7); Neutrophils Percent Auto 81.8 % (45.5-73.1); Platelet Count Result 238 k/mm3 (150-375); Red Blood Count 4.86 M/mm3 (4.2-5.4); Red Cell Distribution Width 13.2 % (11.5-14.5); White Blood Count 12.8 K/mm3 (4.5-10.0)
[2022-05-21 23:03] LABS: Appearance Urine Cloudy (Clear); Bacteria Urine Rare /hpf; Bilirubin Urine Negative (Negative); Blood Urine 1+ (Negative); Color Urine Yellow (Yellow); Glucose Urine UA Negative (Negative); Ketones Urine Trace mg/dL (Negative); Leukocyte Esterase Ur 1+ LEU/UL (Negative); Nitrate Urine Negative (Negative); Non Pathogenic Casts 0-2; Protein Urine Trace mg/dL (Negative); Specific Grav Ur 1.026 (1.001-1.035); Squamous Epithelial Cell Urine Moderate /hpf (Few); Urobilinogen Urine 0.2 mg/dL (<2.0)
[2022-05-21 23:21] LABS: Alanine Aminotransferase 19 U/L (6-35); Albumin Level 4.8 g/dL (3.5-5.1); Alkaline Phosphatase 136 U/L (38-126); Anion Gap 8 mmol/L (8-16); Aspartate Amino Transferase 27 U/L (14-36); Bilirubin,Total 0.6 mg/dL (0.2-1.3); Blood Urea Nitrogen 12 mg/dL (7-17); Calcium 9.3 mg/dL (8.4-10.2); Carbon Dioxide 24 mmol/L (22-30); Chloride 106 mmol/L (98-107); Estimated CRCL calculation 85 ml/min; Estimated Glomerular Filt Rate 55; Glucose 112 mg/dL (65-110); Potassium 4.2 mmol/L (3.4-5.0); Sodium 138 mmol/L (137-145)
[2022-05-21 23:53] LABS: Add Urine Microscopic? YES
[2022-05-22] VITALS (18 sets, daily range): BP systolic 113–133; BP diastolic 75–95; PULSE 51–86; RESP 15–26; O2SAT 94–100
[2022-05-22] MEDS: ONDANSETRON INJ 4 MG/2 ML VIAL IV PUSH (01:48)
[2022-05-22] MEDS: MORPHINE SULFATE (*CRX) 4 MG/ML INJ IV PUSH (01:49)
--- NOTE | 2022-05-22 02:32 | ED.BACK ---
HPI - Back Pain/Injury General Chief Complaint: Back Pain/Injury <JERMAINE Cox Last Filed: 05/22/22 04:52> Stated Complaint: right low back pain that wraps around into abd <JERMAINE Cox Last Filed: 05/22/22 04:52> Time Seen by Provider: 05/22/22 01:09 <JERMAINE Cox Last Filed: 05/22/22 04:52> History of Present Illness HPI Narrative: This is a 26-year-old female with PMH of chorioamnionitis who presents to the ED with chief complaint of right flank pain x1 day. She reports pain starts in the right flank and radiates into the right abdomen. She reports some hematuria. Denies dysuria or frequency. Right now she rates her pain at a 7 but it is colicky in nature. States earlier it was a 9 out of 10. She has nausea and multiple episodes of vomiting. Past abdominal surgical history of section. <JERMAINE Cox Last Filed: 05/22/22 04:52> Related Data Home Medications: Home Medications Medication Instructions Recorded Confirmed levonorgestrel 21 mcg/24 hours (8 20 mcg DIRECTED 04/03/20 03/30/22 yrs) 52 mg intrauterine device (Mirena) fluoxetine 40 mg capsule mg 05/22/22 hydroxyzine HCl 10 mg tablet mg 05/22/22 lamotrigine 25 mg tablet mg 05/22/22 <JERMAINE Cox Last Filed: 05/22/22 04:52> Allergies/Adverse Reactions: Allergies Allergy/AdvReac Type Severity Reaction Status Date / Time sulfamethoxazole Allergy Severe Anaphylaxis Verified 05/23/22 13:11 trimethoprim Allergy Severe Anaphylaxis Verified 05/23/22 13:11 sumatriptan Allergy Unknown Chest Pain Verified 05/23/22 13:11 <JERMAINE Cox Last Filed: 05/22/22 04:52> [facility] Past Medical History Medical History: Medical History (Updated 05/24/22 @ 00:00 by Carol Houston) Anxiety Asthma Encounter for IUD insertion 11/07/19 Mirena insertion GERD (gastroesophageal reflux disease) Kidney stones <Mirza Patel PA-C - Last Filed: 05/22/22 04:52> Surgical History Surgical History: Surgical History History of 06/06/19 primary c/s History of esophagogastroduodenoscopy (EGD) (~2013) GERD History of tonsillectomy (~04/2008) <Mirza Patel PA-C - Last Filed: 05/22/22 04:52> Family History Family History: Family History Mother Diabetes mellitus Hypertension Hypothyroidism Grandparent Diabetes mellitus maternal grandfather <Mirza Patel PA-C - Last Filed: 05/22/22 04:52> Social History Social History: Social History Smoking status: Never smoker Alcohol intake: never Substance use: never Substance use type: does not use Living arrangements: other Additional living arrangements comments: Occupation/Education: occupation Additional occupation/education comments: [employer] Gender identity (if verbalized by the patient): Female Sexual Orientation (if Verbalized by the Patient): Straight or Heterosexual Spiritual care concerns: No <Mirza Patel PA-C - Last Filed: 05/22/22 04:52> Course LAND INSPECTOR/PA Physician Supervision This is a was performed by both a physician and an APC. I performed all aspects of the MDM as documented w/ the following additions: 26-year-old female presenting with flank pain. CT imaging revealed a kidney stone. She has possibly infected urine versus contamination. Will cover with antibiotics. Pain was controlled in ED and patient is resting comfortably. Care was coordinated with Dr. Hubbard with outpatient follow-up.All questions answered. Patient in agreement w/ disposition. <Wayne Estevez MD - Last Filed: 05/24/22 20:31> Vital Signs Vital signs: Vital Signs Temperature 97.9 F 05/21/22 22:41 Pulse Rate 85 05/21/22 22:41 Respira
== END 2022-05-22 06:23 | disposition home or self-care (01) ==
PROVIDERS: Emergency Medicine; Emergency Provider Physician Assistant
DX: N20.9 Urinary calculus, unspecified (principal); F41.9 Anxiety disorder, unspecified; J45.909 Unspecified asthma, uncomplicated; K21.9 Gastro-esophageal reflux disease without esophagitis; Z87.442 Personal history of urinary calculi
CPT/HCPCS: 36415; 74176; 80053; 81001; 81025; 85025; 87086; 87088; 96374; 96375; 99284; J2270; J2405

== ENCOUNTER 2022-05-23 13:08 | Emergency (ER) | payer OTHER, SELFPAY ==
[2022-05-23] VITALS (7 sets, daily range): BP systolic 133–147; BP diastolic 72–96; PULSE 79–95; RESP 15–16; TEMP 37.2; O2SAT 99–100
--- NOTE | ~2022-05-23 | XR_ITS ---
XR abdomen/kub 1V DATE: 05/23/2022 15:40 INDICATION: Ureteral calculus TECHNIQUE: AP rejection, 2 views COMPARISON: 05/22/2022 CT abdomen pelvis To KUB FINDINGS: Approximately 3 mm calcified calculus overlies right pelvic area, likely the right ureterov esical junction. IUD overlies the mid pelvis. No other significant calcification is noted. There is a prominent amount of fecal material in the ascending colon and gas in the transverse colon . No bowel obstruction is detected. The psoas shadows are intact. Lung bases are clear. Heart size appears normal. Included skeletal structures are unremarkable. IMPRESSION: Approximately 3 mm calcified calculus in the region of right ureterovesical junction Reviewed, dictated and finalized at Location A. Reviewed, dictated and finalized at location B. IMPRESSION: Approximately 3 mm calcified calculus in the region of right ureter ovesical junction
[2022-05-23 13:49] LABS: Basophils Percent Auto 0.3 % (0.2-1.2); Eosinophils Percent Auto 0.5 % (0-4.4); Hematocrit 38.6 % (37.0-47.0); Hemoglobin 12.3 g/dL (12.0-15.0); Immature Granulocyte Absolute 0.02 K/mm3 (0.00-0.031); Immature Granulocyte Percent A 0.2 % (0-0.5); Lymphocytes Absolute Auto 0.85 K/mm3 (0.9-3.2); Lymphocytes Percent Auto 9.8 % (18.3-44.2); Mean Corpuscular HGB Conc 31.9 g/dl (32-36); Mean Corpuscular Hemoglobin 26.3 pg (26-34); Mean Corpuscular Volume 82.5 fl (80-100); Mean Platelet Volume 10.4 fl (7.4-10.4); Monocytes Absolute Auto 0.7 K/mm3 (0.1-0.6); Monocytes Percent Auto 7.5 % (2.6-8.5); Neutrophils Absolute Auto 7.1 K/mm3 (1.3-6.7); Neutrophils Percent Auto 81.7 % (45.5-73.1); Platelet Count Result 203 k/mm3 (150-375); Red Blood Count 4.68 M/mm3 (4.2-5.4); Red Cell Distribution Width 13.2 % (11.5-14.5); White Blood Count 8.7 K/mm3 (4.5-10.0)
[2022-05-23 14:03] LABS: Alanine Aminotransferase 18 U/L (6-35); Albumin Level 4.6 g/dL (3.5-5.1); Alkaline Phosphatase 133 U/L (38-126); Anion Gap 6 mmol/L (8-16); Aspartate Amino Transferase 34 U/L (14-36); Bilirubin,Total 0.7 mg/dL (0.2-1.3); Blood Urea Nitrogen 15 mg/dL (7-17); Calcium 9.2 mg/dL (8.4-10.2); Carbon Dioxide 24 mmol/L (22-30); Chloride 105 mmol/L (98-107); Estimated CRCL calculation 85 ml/min; Estimated Glomerular Filt Rate 55; Glucose 99 mg/dL (65-110); Lipase 95 U/L (23-300); Potassium 4.4 mmol/L (3.4-5.0); Sodium 135 mmol/L (137-145)
[2022-05-23 14:12] LABS: Appearance Urine Cloudy (Clear); Bacteria Urine Rare /hpf; Bilirubin Urine Negative (Negative); Blood Urine Negative (Negative); Color Urine Yellow (Yellow); Glucose Urine UA Negative (Negative); Ketones Urine 2+ mg/dL (Negative); Leukocyte Esterase Ur 2+ LEU/UL (Negative); Need Manual Microscopic Reviewed; Nitrate Urine Negative (Negative); Non Pathogenic Casts 0-2; Protein Urine 1+ mg/dL (Negative); RBC Urine 0-2 /hpf (0-2); Specific Grav Ur 1.027 (1.001-1.035); Squamous Epithelial Cell Urine Many /hpf (Few); Urobilinogen Urine 0.2 mg/dL (<2.0); WBC Urine 51-100 /hpf; pH Urine 5.5 (5.0-9.0)
[2022-05-23 15:12] LABS: Add Urine Microscopic? YES
[2022-05-23] MEDS: KETOROLAC 15 MG/ML VIAL (*BKC) IV PUSH (15:25)
[2022-05-23] MEDS: SODIUM CHLORIDE 0.9% IV 1,000 ML 999 ML IV CONT ×2 (15:25→17:58)
[2022-05-23] MEDS: ONDANSETRON INJ 4 MG/2 ML VIAL IV PUSH (15:25)
--- NOTE | 2022-05-23 15:39 | ED.NAVMDI ---
HPI - Nausea/Vomiting/Diarrhea General Chief complaint: Nausea/Vomiting/Diarrhea Stated complaint: kidney stones/ n/v Time Seen by Provider: 05/23/22 14:21 History of Present Illness HPI Narrative: Patient is a 26-year-old female who presents ER with nausea and vomiting. Diagnosed with a kidney stone over the weekend. Right-sided 5 mm. She has been trying to take her pain and nausea medications but she keeps vomiting them up. Because of this she was told to come back to the ER. No dysuria urinary frequency. This is patient's first kidney stone. She has been straining her urine and has not yet passed it. Related Data Home Medications Medication Instructions Recorded Confirmed levonorgestrel 21 mcg/24 hours (8 20 mcg DIRECTED 04/03/20 03/30/22 yrs) 52 mg intrauterine device (Mirena) fluoxetine 40 mg capsule mg 05/22/22 hydroxyzine HCl 10 mg tablet mg 05/22/22 lamotrigine 25 mg tablet mg 05/22/22 Allergies Allergy/AdvReac Type Severity Reaction Status Date / Time sulfamethoxazole Allergy Severe Anaphylaxis Verified 05/23/22 13:11 trimethoprim Allergy Severe Anaphylaxis Verified 05/23/22 13:11 sumatriptan Allergy Unknown Chest Pain Verified 05/23/22 13:11 Review of Systems Review of Systems: All systems reviewed & are unremarkable except as noted in HPI and below Constitutional: Constitutional: Denies chills, Denies fatigue and Denies fever(s) ENT: Denies nasal congestion and Denies sore throat Gastrointestinal: Gastrointestinal: Reports abdominal pain, Denies diarrhea, Reports nausea and Reports vomiting Genitourinary: Genitourinary: Denies nocturia, Denies dysuria and Reports flank pain PMF Past Medical History Medical History (Updated 05/23/22 @ 19:46 by Juan Alberto Fraser MD) Anxiety Asthma Encounter for IUD insertion 11/07/19 Mirena insertion GERD (gastroesophageal reflux disease) Kidney stones Surgical History Surgical History History of 06/06/19 primary c/s History of esophagogastroduodenoscopy (EGD) (~2013) GERD History of tonsillectomy (~04/2008) Family History Family History Mother Diabetes mellitus Hypertension Hypothyroidism Grandparent Diabetes mellitus maternal grandfather Social History Social History Smoking status: Never smoker Alcohol intake: never Substance use: never Substance use type: does not use Living arrangements: other Additional living arrangements comments: Occupation/Education: occupation Additional occupation/education comments: [employer] Gender identity (if verbalized by the patient): Female Sexual Orientation (if Verbalized by the Patient): Straight or Heterosexual Spiritual care concerns: No Exam Narrative: GENERAL: Well-appearing, well-nourished, and in no acute distress. HEAD: Normocephalic, atraumatic. ENT: Mucous membranes moist. CHEST: Clear to auscultation. No respiratory distress. HEART: Regular rate and rhythm. Normal peripheral pulses. ABDOMEN: Soft, nontender, nondistended. Back: No CVA tenderness. There is mild paraspinal tenderness in the L4 region on the right side. EXTREMITIES: Normal range of motion. No edema. SKIN: Warm, dry, no rash. NEURO: Alert and oriented x3. PSYCH: Normal mood and affect. Course Course Emergency Course: Discussed case with Dr. Burr. Patient felt appropriate for outpatient follow-up. Patient pain-free after Toradol. She has received 2 L of IV fluid. Additionally is receiving antiemetics. Afebrile without a white count. Urine seems to be contaminated but she still has cefdinir at home of which she can take. Vital Signs Vital signs: Vital Signs Temperature 99.0 F 05/23/22 13:24 Pulse Rate 93 05/23/22 13:24 Respiratory Rate 15
== END 2022-05-23 19:53 | disposition home or self-care (01) ==
PROVIDERS: Emergency Medicine; Emergency Provider Emergency Medicine
DX: N20.1 Calculus of ureter (principal); F41.9 Anxiety disorder, unspecified; J45.909 Unspecified asthma, uncomplicated; K21.9 Gastro-esophageal reflux disease without esophagitis; Z87.442 Personal history of urinary calculi
CPT/HCPCS: 36415; 74018; 80053; 81001; 81025; 83690; 85025; 87086; 87088; 87106; 96361; 96374; 96375; 99284; J1885; J2405; J7030

== ENCOUNTER 2022-07-15 16:22 | Outpatient (CLI) | payer OTHER, SELFPAY ==
--- NOTE | ~2022-07-15 | XR_ITS ---
XR abdomen/kub 1V 07/15/2022 16:46 INDICATION: Renal stone TECHNIQUE: KUB COMPARISON: 05/23/2022 FINDINGS: Bowel gas pattern is normal. There is no evidence of free air, mass, organomegaly, ascites or obstruction. No abnormal calculi are seen. The bones appear intact. There is an IUD in the pelv is. IMPRESSION: 1: No acute abdominal abnormality identified. Reviewed, dictated and finalized at location B.
== END 2022-07-15 16:23 | disposition home or self-care (01) ==
LOC: ANHIMG 16:24
PROVIDERS: Visit Provider Urology
DX: N20.0 Calculus of kidney (principal)
CPT/HCPCS: 74018

== ENCOUNTER 2023-03-14 12:01 | Emergency (ER) | payer OTHER, MEDICAID, SELFPAY ==
--- NOTE | 2023-03-14 12:09 | ED.URI ---
HPI - URI/Sore Throat General Chief Complaint: Upper Respiratory Infection Stated Complaint: Sinus Time Seen by Provider: 03/14/23 12:15 Source: patient Mode of arrival: ambulatory Limitations: no limitations History of Present Illness HPI Narrative: Luz Marina is a 27-year-old female patient presenting to clinic today with complaints of sinus congestion x2 weeks. She reports she has passing some green nasal drainage as well as having sinus pain and headaches. Also reports some ear discomfort. No known fever or chills. MD elicited complaint: sore throat and nasal congestion Related Data Home Medications Medication Instructions Recorded Confirmed levonorgestrel 21 mcg/24 hours (8 20 mcg DIRECTED 04/03/20 03/30/22 yrs) 52 mg intrauterine device (Mirena) cetirizine 10 mg capsule (Zyrtec) 10 mg PO DAILY PRN 01/06/23 01/06/23 Allergies Allergy/AdvReac Type Severity Reaction Status Date / Time sulfamethoxazole Allergy Severe Anaphylaxis Verified 01/06/23 09:50 trimethoprim Allergy Severe Anaphylaxis Verified 01/06/23 09:50 sumatriptan Allergy Unknown Chest Pain Verified 01/06/23 09:50 Review of Systems Review of Systems: Pertinent positives per HPI. Patient denies any fever, chills, rash, headache, visual changes, dizziness, cough, shortness of breath, chest pain, palpitations, nausea, vomiting, diarrhea, constipation, abdominal pain, or any urinary issues. [facility] Past Medical History Medical History (Updated 03/14/23 @ 12:19 by Marquis Maloney APRN) Anxiety Asthma Encounter for IUD insertion 11/07/19 Mirena insertion GERD (gastroesophageal reflux disease) Kidney stones Surgical History Surgical History (Updated 01/06/23 @ 09:57 by SALVADOR Castaneda) H/O lithotripsy (~08/2022) History of 06/06/19 primary c/s History of esophagogastroduodenoscopy (EGD) (~2013) GERD History of tonsillectomy (~04/2008) Family History Family History Mother Diabetes mellitus Hypertension Hypothyroidism Grandparent Diabetes mellitus maternal grandfather Social History Social History (Updated 01/06/23 @ 09:58 by SALVADOR Castaneda) Smoking status: Never smoker Second hand tobacco smoke exposure: No Alcohol intake: never Substance use: never Substance use type: does not use Lack of Transportation: No Lack of Food: Never True Current Housing: I Have Housing Concerned About Future Housing: No Difficulty Paying Gas/Electric Bills: No Difficulty Paying for Meds: No Currently Unemployed: No Education: High School Diploma/GED Difficulty w/ Childcare or Family Care: No Living arrangements: other Additional living arrangements comments: Occupation/Education: occupation Additional occupation/education comments: [employer] Gender identity (if verbalized by the patient): Female Sexual Orientation (if Verbalized by the Patient): Straight or Heterosexual Spiritual care concerns: No Comments At the time of my signature, I reviewed and agree with the nursing past medical, surgical, social, and family history. There is no relevant family history pertinent to the patient complaint. Exam Narrative: General: Well-developed, well nourished, in no apparent distress Head: Normocephalic, atraumatic Eyes: Pupils equally round and reactive to light bilaterally, EOM intact, sclera and conjunctive clear, no discharge, lids normal Ears: TMs intact and clear, ear canals clear, no drainage, grossly hearing normal. Nose: Nares patent, no discharge, no inflammation, no sinus tenderness. Mouth: Oral pharynx without lesions or masses, good dentition, MMM. Neck: Supple, trachea midline, no enlargement of anterior or posterior cervical nodes, no thyroid masses or goiter palpable. Cardio: Regular rate and rhythm, s1 and s2 normal, no murmur appreciated. Resp: Clear to ausc
[2023-03-14 12:11] VITALS: BP 126/82; PULSE 82; RESP 16; TEMP 36.9; O2SAT 99
== END 2023-03-14 12:22 | disposition home or self-care (01) ==
PROVIDERS: Emergency Provider Nurse Practitioner Family
DX: J01.90 Acute sinusitis, unspecified (principal); B96.89 Other specified bacterial agents as the cause of diseases classified elsewhere; J45.909 Unspecified asthma, uncomplicated
CPT/HCPCS: 99213; G0463

== ENCOUNTER 2023-06-15 18:27 | Emergency (ER) | payer OTHER, MEDICAID, SELFPAY ==
[2023-06-15 18:35] VITALS: BP 126/81; PULSE 84; RESP 16; TEMP 37.4; O2SAT 100
--- NOTE | 2023-06-15 18:44 | ED.URI ---
HPI - URI/Sore Throat General Chief Complaint: Upper Respiratory Infection Stated Complaint: Cough/Sinus Time Seen by Provider: 06/15/23 18:35 Source: patient Mode of arrival: ambulatory Limitations: no limitations History of Present Illness HPI Narrative: Patient is a 27-year-old female who presents with 2 weeks of cough and congestion. Patient was using Mucinex that stopped working. Denies any fever, chills, nausea, vomiting, diarrhea Related Data Home Medications Medication Instructions Recorded Confirmed levonorgestrel 21 mcg/24 hours (8 20 mcg DIRECTED 04/03/20 06/15/23 yrs) 52 mg intrauterine device (Mirena) cetirizine 10 mg capsule (Zyrtec) 10 mg PO DAILY 01/06/23 06/15/23 Allergies Allergy/AdvReac Type Severity Reaction Status Date / Time sulfamethoxazole Allergy Severe Anaphylaxis Verified 06/15/23 18:45 sumatriptan Allergy Severe Chest Pain Verified 06/15/23 18:45 trimethoprim Allergy Severe Anaphylaxis Verified 06/15/23 18:45 Review of Systems Review of Systems: All systems reviewed & are unremarkable except as noted in HPI and below Constitutional: Constitutional: Denies body ache(s), Denies chills, Denies fatigue, Denies fever(s), Denies headache(s), Denies malaise and Denies weakness Eyes: Eyes: Denies blurry vision, Denies itchy eyes and Denies loss of vision ENT: Denies otalgia, Denies headache(s), Reports nasal congestion, Denies sinus pain and Denies sore throat Cardiovascular: Cardiovascular: Denies chest pain, Denies irregular heart rhythm and Denies dyspnea Respiratory: Respiratory: Reports cough and Denies dyspnea Gastrointestinal: Gastrointestinal: Denies abdominal pain, Denies diarrhea, Denies nausea and Denies vomiting Musculoskeletal: Musculoskeletal: Denies back pain, Denies myalgias and Denies arthralgias Integumentary/Breasts: Skin/Breast: Denies pruritus and Denies rash Neurologic: Denies headache(s), Denies loss of vision and Denies weakness Psychiatric: Psychiatric: Reports no additional psychiatric complaints Endocrine: Endocrine: Denies fatigue Allergic/Immunologic: Allergic/Immunologic: Denies itchy eyes PMFSH Past Medical History Medical History Anxiety Asthma Encounter for IUD insertion 11/07/19 Mirena insertion GERD (gastroesophageal reflux disease) Kidney stones Surgical History Surgical History H/O lithotripsy (~08/2022) History of 06/06/19 primary c/s History of esophagogastroduodenoscopy (EGD) (~2013) GERD History of tonsillectomy (~04/2008) Family History Family History Mother Diabetes mellitus Hypertension Hypothyroidism Grandparent Diabetes mellitus maternal grandfather Social History Social History Smoking status: Never smoker Second hand tobacco smoke exposure: No Alcohol intake: never Substance use: never Substance use type: does not use Lack of Transportation: No Lack of Food: Never True Current Housing: I Have Housing Concerned About Future Housing: No Difficulty Paying Gas/Electric Bills: No Difficulty Paying for Meds: No Currently Unemployed: No Education: High School Diploma/GED Difficulty w/ Childcare or Family Care: No Living arrangements: other Additional living arrangements comments: Occupation/Education: occupation Additional occupation/education comments: [employer] Gender identity (if verbalized by the patient): Female Sexual Orientation (if Verbalized by the Patient): Straight or Heterosexual Spiritual care concerns: No Comments At time of signature, agree with nursing past medical, surgical, social and family history. There is no relevant family history pertinent to the presenting complaint. Exam
== END 2023-06-15 19:39 | disposition home or self-care (01) ==
PROVIDERS: Emergency Provider Nurse Practitioner Family
DX: J06.9 Acute upper respiratory infection, unspecified (principal); J45.909 Unspecified asthma, uncomplicated; K21.9 Gastro-esophageal reflux disease without esophagitis
CPT/HCPCS: 99213; G0463

== ENCOUNTER 2023-12-28 18:58 | Emergency (ER) | payer OTHER, MEDICAID, SELFPAY ==
[2023-12-28 19:12] VITALS: BP 127/85; PULSE 93; RESP 16; TEMP 36.9; O2SAT 99
[2023-12-28 19:27] LABS: EDUAAPPEAR Cloudy; EDUABILI Negative (Negative); EDUABLOOD 2+ (Negative); EDUACOLOR1 Yellow; EDUAGLUCOSE Negative (Negative); EDUAKETONE Negative (Negative); EDUALEUKO 1+ (Negative); EDUANITRATE Positive (Negative); EDUAPH 5.5; EDUAPROTEIN 1+ (Negative); EDUAUROBILI 0.2
--- NOTE | 2023-12-28 19:28 | ED.FEMALEGU ---
HPI - Female Genitourinary General Chief complaint: Urogenital-Female Stated complaint: urinary issue Time Seen by Provider: 12/28/23 19:24 Source: patient and RN notes reviewed Mode of arrival: ambulatory Limitations: no limitations History of Present Illness HPI Narrative: Patient presents today with a one-week history of dysuria, frequency, urgency. She reports hematuria on day 1 of symptoms, but none since then. She also reports development of bilateral low back pain over the last couple of days that she currently rates 7/10. She took azo for the 1st 4 days of symptoms, but none since then. Related Data Home Medications Medication Instructions Recorded Confirmed levonorgestrel 21 mcg/24 hr (up to 20 mcg DIRECTED 04/03/20 12/28/23 8 years) 52 mg intrauterine device (Mirena) cetirizine 10 mg capsule (Zyrtec) 10 mg PO DAILY 01/06/23 12/28/23 fluticasone furoate 100 1 inh inhalation DIRECTED 12/28/23 12/28/23 mcg-vilanterol 25 mcg/dose inhalation powder (Breo Ellipta) rimegepant 75 mg disintegrating 75 mg DIRECTED 12/28/23 12/28/23 tablet (Nurtec ODT) Allergies Allergy/AdvReac Type Severity Reaction Status Date / Time sulfamethoxazole Allergy Severe Anaphylaxis Verified 06/15/23 18:45 sumatriptan Allergy Severe Chest Pain Verified 06/15/23 18:45 trimethoprim Allergy Severe Anaphylaxis Verified 06/15/23 18:45 Review of Systems Review of Systems: CONSTITUTIONAL: Denies body aches, fever, chills, or sweats. EYES: Denies visual changes, redness, or discharge. ENT: Denies rhinorrhea, congestion, sore throat, or otalgia. CARDIOVASCULAR: Denies chest pain, palpitations, or edema. RESPIRATORY: Denies cough or dyspnea. GASTROINTESTINAL: Denies abdominal pain, nausea, vomiting, or diarrhea. GENITOURINARY: + dysuria, frequency, urgency SKIN: Denies rash, itching, or wounds. MUSCULOSKELETAL: Denies joint pain, or myalgia.+ low back pain NEUROLOGIC: Denies headache, numbness, tingling, or weakness. PSYCH: Denies depression or anxiety. [facility] Past Medical History Medical History Anxiety Asthma Encounter for IUD insertion 11/07/19 Mirena insertion GERD (gastroesophageal reflux disease) Kidney stones Surgical History Surgical History H/O lithotripsy (~08/2022) History of 06/06/19 primary c/s History of esophagogastroduodenoscopy (EGD) (~2013) GERD History of tonsillectomy (~04/2008) Family History Family History Mother Diabetes mellitus Hypertension Hypothyroidism Grandparent Diabetes mellitus maternal grandfather Social History Social History Smoking status: Never smoker Second hand tobacco smoke exposure: No Alcohol intake: never Substance use: never Substance use type: does not use Lack of Transportation: No Lack of Food: Never True Current Housing: I Have Housing Concerned About Future Housing: No Difficulty Paying Gas/Electric Bills: No Difficulty Paying for Meds: No Currently Unemployed: No Education: High School Diploma/GED Difficulty w/ Childcare or Family Care: No Living arrangements: other Additional living arrangements comments: Occupation/Education: occupation Additional occupation/education comments: [employer] Gender identity (if verbalized by the patient): Female Sexual Orientation (if Verbalized by the Patient): Straight or Heterosexual Spiritual care concerns: No Comments At time of signature, I have reviewed and agree with nursing past medical, surgical, social and family history unless otherwise noted. Please see nursing chart for further information. There is no relevant family history pertinent to the presenting complaint
== END 2023-12-28 19:37 | disposition home or self-care (01) ==
PROVIDERS: Emergency Provider Nurse Practitioner; PCP Nurse Practitioner
DX: N30.01 Acute cystitis with hematuria (principal)
CPT/HCPCS: 81003; 87086; 87186; 99213; G0463